=== PATIENT | female | born 1950 | race Two or more races ===

== ENCOUNTER 2018-12-24 09:22 | Outpatient (CLI) | payer OTHER | END 2018-12-24 11:48 | disposition home or self-care (01) | LOC: SONOGRAMA 09:22 | DX: N84.0 Polyp of corpus uteri (principal); N60.11 Diffuse cystic mastopathy of right breast; N60.12 Diffuse cystic mastopathy of left breast; E66.3 Overweight; D25.1 Intramural leiomyoma of uterus ==

== ENCOUNTER 2023-09-14 07:36 | Outpatient (CLI) | payer OTHER | END 2023-09-14 07:38 | disposition home or self-care (01) | LOC: RX STUDY 07:36 | DX: K59.09 Other constipation (principal); R10.30 Lower abdominal pain, unspecified; R93.3 Abnormal findings on diagnostic imaging of other parts of digestive tract; I51.7 Cardiomegaly; D50.9 Iron deficiency anemia, unspecified ==